=== PATIENT | male | born 1950 | race Caucasian/White ===

== ENCOUNTER 2017-03-06 16:37 | Emergency (ER) | payer OTHER, BC ==
[~2017-03-06] VITALS: Ht 172.7 cm; Wt 115.9 kg
[~2017-03-06 16:37] MED LIST: ASPIR 8181 M1 PO; ASPIRIN E.C.81 M1 PO; ASPIRIN EC325 MG PO; ASPIRIN325 MG PO; ATARAX,VISTARIL25 MG PO; ATENOLOL50 MG PO; ATIVAN0.5 MG PO; CELEBREX200 MG PO; CIPROFLOXACIN500 M1 PO; CLOPIDOGREL75 MG PO; DURAGESIC12 MCG TD; DURAGESIC25 MCG TD; EFFEXOR XR150 MG PO; FAMOTIDINE20 MG PO; FLECTOR 1.3%1 PATC1 TD; FLUOXETINE HCL20 MG PO; FLUOXETINE HCL60 MG PO; FUROSEMIDE40 MG PO; INDOCIN25 MG PO; INDOMETHACIN25 MG PO; KENALOG,ARISTOC80 GM TP; LIDOCAINE700 MG TD; LISINOPRIL10 MG PO; LO-DOSE ASPIRIN81 M1 PO; LOFIBRA,TRIGLI160 MG PO; LOPRESSOR25 MG PO; LORAZEPAM1 MG PO; LYRICA100 MG PO; LYRICA150 MG PO; METOPROLOL TART25 MG PO; METOPROLOL TART50 MG PO; METRONIDAZOLE500 MG PO; MINIPRESS2 MG PO; MORPHINE SULFAT15 M1 PO; NEBULIZER; NITROSTAT0.4 MG SL; NORVASC5 MG PO; OXYCODONE HCL15 MG PO; PERCOCET 5/31 TABLET PO; PLAVIX75 MG PO; POTASSIUM CHLO10 ME4 PO; PRAVACHOL80 MG PO; PRAVASTATIN SOD80 MG PO; PRED FORTE100 DROP/5 LEFT EYE; PROAIR HFA8.5 GM IH; PROZAC20 MG PO; PROZAC40 MG PO; RAMIPRIL PO; RISPERDAL2 MG PO; SEROQUEL12.5 MG PO; SEROQUEL200 MG PO; SEROQUEL300 MG PO; SINGULAIR10 MG PO; SYMBICORT60 INHALAT IH; TIZANIDINE HCL4 M1 PO; TRAZODONE HCL100 MG PO; TRAZODONE HCL150 MG PO; ULTRAM50 MG PO; VIAGRA25 MG PO; ZESTRIL20 MG PO
[2017-03-06 17:25] LABS: HEMATOCRIT 48.3 % (38.0-50.0); HEMOGLOBIN 16.9 G/DL (12.5-16.6); MCH 29.5 PG (29.0-34.0); MCV 84.4 FL (86-99); PLATELET COUNT 245 K/uL (156-360); RBC DIS.WIDTH-SD 45.3 % (39-53); RED BLOOD COUNT 5.72 M/uL (4.00-5.50); WHITE BLOOD COUNT 9.4 K/uL (4.1-10.2)
[2017-03-06 17:31] VITALS: BP 136/88
[2017-03-06 17:37] LABS: CHLORIDE 111 mEq/L (99-109); POTASSIUM 3.1 mEq/L (3.7-5.4); SODIUM 139 mEq/L (136-147)
[2017-03-06 17:39] LABS: GLUCOSE 146 mg/dL (70-99)
[2017-03-06 17:42] LABS: CREATININE 1.2 mg/dL (0.6-1.3); GFR ESTIMATE (CALCULATED) > 59 mL/min/ (58.99-99999)
[2017-03-06 17:43] LABS: UREA NITROGEN (BUN) 16 mg/dL (9-23)
[2017-03-06 17:50] LABS: TROP-I INTERPRETATION NEGATIVE; TROPONIN-I < 0.01 ng/mL (0.0-0.30)
[2017-03-06 18:06] LABS: SERUM ETHYL ALCOHOL < 10 mg/dL
== END 2017-03-06 18:50 | disposition home or self-care (01) ==
LOC: EME 16:37
PROVIDERS: Emergency Medicine
DX: R07.9 Chest pain, unspecified (principal); I11.0 Hypertensive heart disease with heart failure; I50.9 Heart failure, unspecified; E78.5 Hyperlipidemia, unspecified; I25.2 Old myocardial infarction; F02.80 Dementia in other diseases classified elsewhere, unspecified severity, without behavioral disturbance, psychotic disturbance, mood disturbance, and anxiety; G30.9 Alzheimer's disease, unspecified; I25.10 Atherosclerotic heart disease of native coronary artery without angina pectoris; Z95.5 Presence of coronary angioplasty implant and graft; J44.9 Chronic obstructive pulmonary disease, unspecified; Z87.891 Personal history of nicotine dependence; F32.9 Major depressive disorder, single episode, unspecified; M79.7 Fibromyalgia; F41.9 Anxiety disorder, unspecified; K21.9 Gastro-esophageal reflux disease without esophagitis; Z88.8 Allergy status to other drugs, medicaments and biological substances
CPT/HCPCS: 36600; 71046; 80048; 82803; 83880; 84484; 85027; 99281; 99285; G0480

== ENCOUNTER 2017-09-02 22:10 | Observation (INO) | payer OTHER, BC ==
[~2017-09-02] VITALS: Ht 175.3 cm; Wt 122.2 kg
[~2017-09-02 22:10] MED LIST changes: +DESYREL100 MG PO; +ERGOCALCIF50000 UNIT PO; +FENOFIBRATE160 M1 PO; +HYGROTON25 MG PO; -NEBULIZER; +PROVENTIL,2.5 MG/3 M IH; -SEROQUEL12.5 MG PO; -TRAZODONE HCL150 MG PO; +VENTOLIN HFA18 GM IH
[2017-09-02 22:52] LABS: HEMATOCRIT 43.2 % (38.0-50.0); HEMOGLOBIN 14.1 G/DL (12.5-16.6); MCH 29.4 PG (29.0-34.0); MCHC 32.6 G/DL (30.0-36.0); MCV 90.2 FL (86-99); PLATELET COUNT 184 K/uL (156-360); RBC DIS.WIDTH-SD 50.3 % (39-53); RED BLOOD COUNT 4.79 M/uL (4.00-5.50); WHITE BLOOD COUNT 7.7 K/uL (4.1-10.2)
[2017-09-02 22:53] LABS: CARBON DIOXIDE (BICARBONATE) 34.3 MEQ/L (20-31)
[2017-09-02 23:04] LABS: CHLORIDE 99 mEq/L (99-109); POTASSIUM 3.9 mEq/L (3.7-5.4); SODIUM 139 mEq/L (136-147)
[2017-09-02 23:06] LABS: GLUCOSE 112 mg/dL (70-99); TOTAL PROTEIN 7.6 g/dL (6.4-8.3)
[2017-09-02 23:08] LABS: TOTAL BILIRUBIN 0.5 mg/dL (0.0-1.0)
[2017-09-02 23:09] LABS: ALKALINE PHOSPHATASE 93 IU/L (3-129)
[2017-09-02 23:10] LABS: CREATININE 1.2 mg/dL (0.6-1.3); GFR ESTIMATE (CALCULATED) > 59 mL/min/ (58.99-99999)
[2017-09-02 23:11] LABS: AST (GOT) 22 IU/L (2-34); UREA NITROGEN (BUN) 10 mg/dL (9-23)
[2017-09-02 23:13] LABS: ALT (GPT) 23 IU/L (3-49); LIPASE 28 U/L (1.0-51.0); TROP-I INTERPRETATION NEGATIVE; TROPONIN-I < 0.01 ng/mL (0.0-0.30)
[2017-09-03 01:07] LABS: SERUM ETHYL ALCOHOL < 10 mg/dL
[2017-09-03 04:32] VITALS: BP 137/75
[2017-09-03 07:39] VITALS: BP 123/78
[2017-09-03 11:02] LABS: APPEARANCE CLEAR ((CLEAR)); BILIRUBIN NEGATIVE; BLOOD NEGATIVE; COLOR COLORLESS ((YELLOW)); GLUCOSE (STRIP) NEGATIVE; KETONES NEGATIVE; LEUKOCYTES TRACE; NITRITE NEGATIVE; PROTEIN (STRIP) NEGATIVE; SPECIFIC GRAVITY 1.004 (1.000-1.030); UROBILINOGEN 0.2 MG/DL (0.2-1.0)
[2017-09-03 11:08] LABS: BACTERIA NONE SEEN /HPF; EPITHELIAL CELLS NONE SEEN /HPF; MUCUS TRACE /LPF; RED BLOOD CELLS 0-5 /HPF (0-5); UCUL ADDED? NO; WHITE BLOOD CELLS 0-5 /HPF (0-5)
[2017-09-03 12:00] VITALS: BP 119/72
[2017-09-03] MEDS ORDERED: FLOMAX0.4 MG PO (13:10)
[2017-09-03] MEDS ORDERED: TRELEGY ELLIPT1 EACH IH (13:11)
[2017-09-03 17:27] VITALS: BP 104/68
[2017-09-03 20:32] VITALS: BP 118/73
[2017-09-04 00:36] VITALS: BP 124/69
[2017-09-04 04:00] VITALS: BP 137/75
[2017-09-04 06:47] LABS: BASOPHIL (%) 0.9 % (0-1); BASOPHIL COUNT 0.1 K/uL (0-0.1); EOSINOPHIL (%) 2.9 % (0-5); EOSINOPHIL COUNT 0.3 K/uL (0-0.3); HEMATOCRIT 43.4 % (38.0-50.0); HEMOGLOBIN 14.6 G/DL (12.5-16.6); IMMATURE GRANULOCYTE (%) 0.7 % (0.0-0.7); LYMPHOCYTE (%) 36.2 % (15-42); LYMPHOCYTE COUNT 3.2 K/uL (1.0-2.8); MCHC 33.6 G/DL (30.0-36.0); MCV 86.3 FL (86-99); MONOCYTE COUNT 0.9 K/uL (0-0.8); NEUTROPHIL (%) 49.3 % (45-76); NEUTROPHIL COUNT 4.3 K/uL (1.8-6.4); PLATELET COUNT 237 K/uL (156-360); RBC DIS.WIDTH-SD 47.2 % (39-53); RED BLOOD COUNT 5.03 M/uL (4.00-5.50); WHITE BLOOD COUNT 8.7 K/uL (4.1-10.2)
[2017-09-04 07:06] LABS: CHLORIDE 94 MEQ/L (99-109); CREATININE 1.2 MG/DL (0.6-1.3); GFR ESTIMATE (CALCULATED) > 59 mL/min/ (58.99-99999); GLUCOSE 114 mg/dL (70-99); SODIUM 135 MEQ/L (136-147); UREA NITROGEN (BUN) 18 mg/dL (9-23)
[2017-09-04 07:11] LABS: POTASSIUM 3.1 MEQ/L (3.7-5.4)
[2017-09-04 08:12] VITALS: BP 165/94
[2017-09-04 11:50] VITALS: BP 139/101
[2017-09-04 12:57] VITALS: BP 142/88
== END 2017-09-04 13:15 | disposition home or self-care (01) ==
LOC: EME → EDBD 22:10 → EME 22:10 → EDOF 09-03 03:14 → ENRESERV 09-03 03:17 → 5SOUTH 09-03 04:15
PROVIDERS: Emergency Medicine; Hospitalist; Physician Assistant
DX: E87.2 Acidosis (principal); T40.4X1A Poisoning by other synthetic narcotics, accidental (unintentional), initial encounter; G89.4 Chronic pain syndrome; J44.9 Chronic obstructive pulmonary disease, unspecified; M25.552 Pain in left hip; M25.551 Pain in right hip; M54.5 Low back pain; J96.10 Chronic respiratory failure, unspecified whether with hypoxia or hypercapnia; Z99.81 Dependence on supplemental oxygen; I13.0 Hypertensive heart and chronic kidney disease with heart failure and stage 1 through stage 4 chronic kidney disease, or unspecified chronic kidney disease; N18.9 Chronic kidney disease, unspecified; I50.30 Unspecified diastolic (congestive) heart failure; E78.5 Hyperlipidemia, unspecified; G47.33 Obstructive sleep apnea (adult) (pediatric); E66.01 Morbid (severe) obesity due to excess calories; Z68.39 Body mass index [BMI] 39.0-39.9, adult; I25.10 Atherosclerotic heart disease of native coronary artery without angina pectoris; Z95.5 Presence of coronary angioplasty implant and graft; G30.9 Alzheimer's disease, unspecified; F02.80 Dementia in other diseases classified elsewhere, unspecified severity, without behavioral disturbance, psychotic disturbance, mood disturbance, and anxiety; Z87.891 Personal history of nicotine dependence; Z82.49 Family history of ischemic heart disease and other diseases of the circulatory system; Z83.3 Family history of diabetes mellitus; Z81.1 Family history of alcohol abuse and dependence; Z88.8 Allergy status to other drugs, medicaments and biological substances; Z79.82 Long term (current) use of aspirin; Z79.891 Long term (current) use of opiate analgesic
CPT/HCPCS: 70450; 71045; 80048; 80053; 81003; 82803; 82948; 83690; 83880; 84484; 85025; 85027; 93005; 94640; 94799; 99281; 99285; G0378; G0480; G8978 GP CI; G8979 GP CH; G8980 GP CI; G8987 GO CJ; G8988 CI; G8989 CJ; J1644; J1940; J2310; J3010

== ENCOUNTER 2017-09-19 08:39 | Day surgery (SDC) | payer OTHER ==
[~2017-09-19] VITALS: Ht 175.3 cm; Wt 122.7 kg
[~2017-09-19 08:39] MED LIST changes: +FLOMAX0.4 MG PO; +TRELEGY ELLIPT1 EACH IH
== END 2017-09-19 10:45 | disposition home or self-care (01) ==
LOC: PAIN 08:39 → SDC 09:00 → PAIN 09:00
DX: M16.11 Unilateral primary osteoarthritis, right hip (principal); M47.816 Spondylosis without myelopathy or radiculopathy, lumbar region; I10 Essential (primary) hypertension; I25.10 Atherosclerotic heart disease of native coronary artery without angina pectoris; F41.9 Anxiety disorder, unspecified; J44.9 Chronic obstructive pulmonary disease, unspecified; G30.9 Alzheimer's disease, unspecified; F02.80 Dementia in other diseases classified elsewhere, unspecified severity, without behavioral disturbance, psychotic disturbance, mood disturbance, and anxiety; F31.81 Bipolar II disorder; E66.01 Morbid (severe) obesity due to excess calories; Z68.39 Body mass index [BMI] 39.0-39.9, adult; Z87.891 Personal history of nicotine dependence; Z79.891 Long term (current) use of opiate analgesic; M17.0 Bilateral primary osteoarthritis of knee; Z79.82 Long term (current) use of aspirin; Z88.8 Allergy status to other drugs, medicaments and biological substances; I25.2 Old myocardial infarction; Z95.5 Presence of coronary angioplasty implant and graft
CPT/HCPCS: J1030; J2250; J3010; S0020